=== PATIENT | male | born 1950 | race Caucasian/White ===

== ENCOUNTER 2017-05-08 13:12 | Outpatient (CLI) | payer MEDICARE ==
--- NOTE | 2017-05-08 17:35 | MRI ---
MRI RIGHT LOWER EXTREMITY: Date: 05/08/17 HISTORY: Pain FINDINGS: Medial Meniscus: Chronic full thickness radial tear of the posterior root attachment medial meniscus with medial gutt er extrusion of the severely degenerative medial meniscus, 3-4 mm. There is extensive loss of volume of the medial meniscal body and posterior horn. Lateral Meniscus: Mild degenerative. No displaced tear. 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 Posterior cruciate ligament is int act. There is moderate edema on both sides of the medial collateral ligament, which is otherwise intact. Lateral collateral ligaments intact. Extensor Mechanism: Quadriceps tendon, patella, and patellar tendon are intact. Soft Tissues: Moderate joint effusion. There is a leaking popliteal cyst with debris extending between the soleus and medial head of gastrocnemius muscles, as well as between the popliteus and medial head gastrocne mius. Cartilage: Patellofemoral cartilage: Multifocal full thickness cartilage defects of the medial and lateral pat ellar facets with large osteophyte formation. Medial compartment: Near full thickness cartilage loss of the labrum at medial femoral condyle and medial tibial plateau. Lateral compartment: Moderate cartilage fraying. No full thickness defect. IMPRESSION: 1. Full thickness radial tear of the posterior root attachment medial meniscus with extensive degen eration of the body and posterior horn, as well as medial gutter extrusion. 2. 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 3. Leaking popliteal cyst with debris leaking outside of the cyst wheat and into the soft tissues b etween the popliteus and medial head gastrocnemius. 4. Dilated greater saphenous vein suggests reflux disease. 5. Multifocal near full thickness cartilage loss of the medial compartment with large osteophyte fo rmation. POS: [facility]
== END 2017-05-08 13:13 | disposition home or self-care (01) ==
LOC: SCSMRI 13:12
PROVIDERS: ATTEND Orthopaedic Surgery
DX: M25.561 Pain in right knee (principal); S83.241A Other tear of medial meniscus, current injury, right knee, initial encounter; M71.21 Synovial cyst of popliteal space [Baker], right knee; M23.91 Unspecified internal derangement of right knee

== ENCOUNTER 2017-10-28 12:11 | Outpatient (CLI) | payer MEDICARE ==
[2017-10-28 14:04] LABS: #Eosinphils 0.1 thou/uL (0.0-0.7); #Lymphocytes 1.8 thou/uL (1.20-3.40); #Monocytes 0.5 thou/uL (0.11-0.59); #Neutrophils 4.1 thou/uL (1.40-6.50); %Basophils 0.7 % (0.0-1.0); %Lymphocytes 27.5 % (21.0-51.0); %Monocytes 7.9 % (0.0-10.0); %Neutrophils 61.9 % (42.0-75.0); Hemoglobin 15.3 g/dL (14.0-18.0); Mean Corpuscular HGB CONC 33.4 g/dL (32.0-36.0); Mean Corpuscular Hemoglobin 31.2 pg (27.0-31.0); Mean Corpuscular Volume 93.7 fl (80.0-94.0); Mean Platelet Volume 8.1 fL (7.4-10.4); Platelet Count 195 thou/uL (130-400); RBC Distribution Width 11.5 % (11.5-14.5); Red Blood Cell (RBC) Count 4.91 mill/uL (4.70-6.10); White Blood Cell (WBC) Count 6.7 thou/uL (4.8-10.8)
[2017-10-28 14:08] LABS: INR-International Normal Ratio 0.9; Prothrombin Time 12.6 SEC (12.0-14.7)
[2017-10-28 14:09] LABS: Bilirubin Negative (Negative); Blood, Urine Negative (Negative); Clarity CLEAR (Clear); Glucose, Urine (Dipstick) Negative (Negative); Leukocyte Negative (Negative); Nitrite Negative (Negative); Protein, Urine (Dipstick) Negative (Neg-Trace); Urobilinogen 0.2 mg/dL (0.2-1.0); pH, Urine 6.5 (5.0-9.0)
[2017-10-28 14:22] LABS: Bacteria/HPF None Seen HPF (None Seen); Hyaline Casts/LPF 0-3 HYALINE CAST LPF (0-3 Hyaline); RBC/HPF 0-3 HPF (0-3); Squamous Epithelial None Seen HPF (0-3); WBC/HPF None Seen HPF (0-3)
[2017-10-28 14:28] LABS: Anion Gap 16 mmol/L (10-20); BUN (Urea Nitrogen) 24 mg/dL (8.4-25.7); Calc. Creatinine Clearance 0 mL/min (70-130); Calcium 9.6 mg/dL (7.8-10.44); Carbon Dioxide 22 mmol/L (23-31); Chloride 102 mmol/L (98-107); Estimated GFR-MDRD Greater than 90; Glucose 91 mg/dL (80-115); Potassium 4.5 mmol/L (3.5-5.1); Sodium 135 mmol/L (136-145)
--- NOTE | 2017-10-28 14:31 | RAD ---
CHEST 2 VIEWS: HISTORY: Preop. COMPARISON: Chest radiograph 2017. FINDINGS: Lungs without focal airspace consolidation, pneumothorax, or effusion. Cardiac silhouette and medias tinal contours within normal limits. Anterior flowing osteophytes throughout the thoracic spine. IMPRESSION: No acute intrathoracic abnormality. POS: [facility]
--- NOTE | 2017-10-28 16:04 | EKG ---
Test Reason : Blood Pressure : / mmHG Vent. Rate : 052 BPM Atrial Rate : 052 BPM P-R Int : 182 ms QRS Dur : 142 ms QT Int : 454 ms P-R-T Axes : 050 -01 027 degrees QTc Int : 422 ms Sinus bradycardia Right bundle branch block Abnormal ECG Confirmed by NOLAN AYALA ([id number]) on 10/28/2017 4:04:06 PM Referred By: CHELE Confirmed By:NOLAN AYALA
== END 2017-10-28 12:12 | disposition home or self-care (01) ==
LOC: LABBT 12:11
PROVIDERS: ATTEND Orthopaedic Surgery
DX: Z01.818 Encounter for other preprocedural examination (principal); M17.11 Unilateral primary osteoarthritis, right knee; R00.1 Bradycardia, unspecified; I45.10 Unspecified right bundle-branch block
CPT/HCPCS: 71046; 80048; 81001; 85025; 85610; 86850; 86900; 86901; 87081; 93005; 93010

== ENCOUNTER 2017-11-04 05:32 | Day surgery (SDC) | payer MEDICARE ==
[2017-10-28 12:30] VITALS: BMI 40.7
[2017-11-04] MEDS ORDERED: CEFAZOLIN/Water 2 GM/20 ML SYRINGE ONE (05:56)
[2017-11-04] MEDS ORDERED: Vancomycin HCl 1.5 GM in Sodium Chloride 0.9% 250 ML 300 ML IVPB SCH (06:15)
[2017-11-04] MEDS ORDERED: Fentanyl 100 MCG/2 ML VIAL ONE ×3 (06:26→09:10)
[2017-11-04] MEDS ORDERED: Lidocaine 1% (PF) 30 ML VIAL ONE (06:26)
[2017-11-04] MEDS ORDERED: Midazolam HCl 2 mg/2 ml Vial ONE (06:26)
[2017-11-04] MEDS ORDERED: HYDROcodone/Acetaminophen 10/325 mg Tablet PO PRN (07:10)
[2017-11-04] MEDS ORDERED: Promethazine HCl 25 MG/ML VIAL IM PRN ×3 (07:10→08:51)
[2017-11-04] MEDS ORDERED: traMADol HCl 50 MG TAB PO PRN ×2 (07:10→08:48)
[2017-11-04] MEDS ORDERED: Ondansetron HCl/PF 4 MG/2 ML Vial IVP PRN ×3 (07:10→08:51)
[2017-11-04] MEDS ORDERED: Morphine 10 MG/ML VIAL ONE (07:45)
[2017-11-04] MEDS ORDERED: Zolpidem Tartrate 5 MG TAB PO PRN (08:48)
[2017-11-04] MEDS ORDERED: Fentanyl 100 MCG/2 ML VIAL SLOW IVP PRN (08:48)
[2017-11-04] MEDS ORDERED: diphenhydrAMINE 25 MG CAP PO PRN (08:48)
[2017-11-04] MEDS ORDERED: Acetaminophen 325 MG TAB PO PRN (08:48)
[2017-11-04] MEDS ORDERED: Promethazine HCl 25 MG/ML VIAL SLOW IVP PRN (08:51)
[2017-11-04] MEDS ORDERED: Tranexamic Acid 1,000 MG in Sodium Chloride 0.9% 100 ML IVPB SCH (09:00)
[2017-11-04] MEDS ORDERED: Non-Formulary Item 1 EACH (Telmisartan/Hydrochlorothiazid [Telmisartan-Hctz 80-12.5 Mg Tb PO SCH (09:00)
[2017-11-04] MEDS ORDERED: Promethazine HCl 25 MG/ML VIAL ONE (09:10)
[2017-11-04] MEDS: HYDROcodone/Acetaminophen 10/325 mg Tablet PO PRN ×3 (10:05→22:10)
[2017-11-04] MEDS: Aspirin 81 mg Enteric Coated Tablet PO SCH ×2 (10:06→21:31)
[2017-11-04] MEDS: Multivitamin W/ Minerals 1 TAB PO SCH (10:06)
[2017-11-04] MEDS ORDERED: hydrALAZINE 20 MG/ML VIAL SLOW IVP PRN (10:07)
[2017-11-04] MEDS: Amlodipine 5 MG TAB PO SCH (10:07)
--- NOTE | 2017-11-04 10:28 | OP ---
PREOPERATIVE DIAGNOSIS: Degenerative joint disease of the right knee. POSTOPERATIVE DIAGNOSIS: Degenerative joint disease of the right knee. SURGEON: Temo Gunderson M.D. ORAL SURGERY TECHNICIAN: Yolei Cassidy PA-C BLOOD LOSS: Minimal. SPECIMEN: None. DRAINS: None. COMPLICATIONS: None. TITLE OF PROCEDURE: Right total knee arthroplasty. IMPLANTS USED: Lottie 5 femur, 5 tibia, 9 mm CSX3 polyethylene, and A35 patella, this was the Triat hlon System. PROCEDURE IN DETAIL: After informed consent was obtained in the preoperative holding area. The darlin ent was taken to the operative suite where general anesthesia was induced. Once adequate level of ge neral anesthesia was obtained, the patient was positioned and a well-padded tourniquet was placed mahendra und the right proximal thigh. The right lower extremity was then prepped and draped in the usual denice rile fashion. Prior to exsanguination, a time out was called and all members of the surgical team ag miranda upon site, surgeon, and patient. The extremity was then exsanguinated and the tourniquet was ra ised. A midline longitudinal incision was then made directly over the patella extending two fingerbr eadths above the superior pole of the patella and two fingerbreadths inferior to the inferior patella r pole of the patella. Deeper subcutaneous layers were dissected sharply and local bleeding was cont rolled with Bovie electrocautery. A quad tendon longitudinal split was then made sharply and a media n parapatellar arthrotomy was carried out both sharp and with Bovie electrocautery, carried down to o ne fingerbreadth medial to the tibial tubercle. The knee was then placed into flexion and the patell a was everted nicely, and a copious fat pad ectomy was performed allowing for greater exposure of the tibia. The computer-assisted distal femoral fiducial was then placed and pinned firmly, and the dis hosea femoral cutting guide was pinned firmly into place. The oscillating saw was then used to remove the appropriate amount of bone. The 4-in-1 cutting block was then placed on the distal femur and the oscillating saw was used to remove the appropriate amount of bone off of the anterior, posterior, an d chamfer cuts. After completion of bone cuts, the anterior cruciate ligament was resected sharply a nd the posterior cruciate ligament retractor was placed and the tibia was subluxed for better exposur e. Partial meniscectomies were carried out, and the tibial computer-assisted fiducial was pinned, an d the cutting guide was placed. Oscillating saw was then used to remove the bone with Hohmann retrac tors used to take care and protect the collateral ligaments. After the tibial resection was performe d, a laminar hat steamer was placed in between the freshened bone cuts. The knee placed at 90 degrees a nd further bilateral meniscectomies were carried out, and the curved osteotome and curettage was used to remove any excess bone spurs in the posterior compartment. The trial femoral component, tibial b aseplate were placed with the appropriate polyethylene trial insert with an appropriate polyethylene spacer and patellar button. The knee was taken through full range of motion with flexion and extensi on from 0-90 degrees and patellar broach squarely in the trochlea without any squinting or subluxatio n noted. The knee was also stable to varus and valgus stressing at 0, 15, 45, and 90 degrees of flex ion. The drawer was negative. All trial components were then removed and the keel punch was used to provide the appropriate defect in the tibia with a mallet. The freshened bone cuts were copiously ir rigated with pulsatile lavage of about 1-1/2 liters to remove all excess debris. The freshened bone cuts were then dried and with suction and lap sponge. The knee was placed in flexion and retractors were placed to provide access to all bone cuts. Tobramycin impregnated methyl methacrylate cement wa s then placed on the freshened bone cuts and implants which were malleted firmly into place. Curetta ge and Carlton elevators were used to remove any excess bone cement. The knee was placed into full ext ension and the patellar button was placed under compression, and the cement was allowed to cure. Onc e completed, the components were again taken through full range of motion and copious irrigation of t he knee was carried out with another liter of normal saline. All components were inspected fully wit h full range of motion and varus and valgus stressing. There was no laxity noted and full extension w as observed clinically. Primary closure was accomplished with #2 interrupted Vicryl stitch of the ar throtomy defect. This was oversewn with a #2 running Quill barbed stitch. The gravitational platele t system was then injected into the arthrotomy prior to closure. The subcutaneous layer was then yadira sed with a running 0 barbed Monocryl stitch and skin closure accomplished with a running subcuticular 3-0 Monocryl barbed Quill stitch and augmented with cement on the skin. Tourniquet was lowered. Go od spontaneous return of distal pulses was noted clinically and a sterile dressing was applied to the incision. The procedure was terminated without any complications. The patient was awakened in the operative suite and the tourniquet was removed, and the patient was taken to the recovery room in sta ble condition.
--- NOTE | 2017-11-04 10:50 | RAD ---
RIGHT KNEE TWO VIEWS: History: 67-year-old male with history of recent total knee arthroplasty. FINDINGS: Right total knee recent arthroplasty changes are noted without evidence for dislocation or periprosth etic fracture or other significant acute process. IMPRESSION: Unremarkable left total knee arthroplasty changes. POS: [facility]
[2017-11-04] MEDS ORDERED: Ketorolac Tromethamine 30 MG/ML VIAL IVP SCH (12:00)
[2017-11-04] MEDS: Sodium Chloride 0.9% 1,000 ML IV SCH ×2 (13:16→19:16)
[2017-11-04] MEDS: Fentanyl 100 MCG/2 ML VIAL IV PRN (13:18)
[2017-11-04] MEDS ORDERED: CEFAZOLIN/Water 2 GM/20 ML SYRINGE SLOW IVP SCH (14:00)
[2017-11-04] MEDS: CEFAZOLIN/Water 2 GM/20 ML SYRINGE SLOW IVP SCH ×2 (14:32→22:03)
[2017-11-04] MEDS: Ketorolac Tromethamine 30 MG/ML VIAL IVP SCH ×2 (15:53→21:31)
[2017-11-04] MEDS ORDERED: Bupivacaine 0.25% HCL 30 ML VIAL ONE (15:59)
[2017-11-04] MEDS ORDERED: Ropivacaine 0.5% HCl/PF (150 MG/30 ML VIAL) ONE (15:59)
[2017-11-04] MEDS ORDERED: PROPOFOL 200 MG/20 ML VIAL ONE (16:25)
[2017-11-04] MEDS ORDERED: Ketorolac Tromethamine 30 MG/ML VIAL ONE (16:25)
[2017-11-04] MEDS ORDERED: Lidocaine 1% PF 5 ML VIAL ONE (16:25)
[2017-11-04] MEDS: traMADol HCl 50 MG TAB PO PRN (19:15)
[2017-11-04] MEDS ORDERED: Non-Formulary Item 1 EACH (Zolpidem Tartrate [Zolpidem Tartrate] 10 MG) PO SCH (21:00)
[2017-11-04] MEDS: Zolpidem Tartrate 5 MG TAB PO PRN (21:31)
[2017-11-04] MEDS: Bupivacaine 0.5% 50 ML in Sodium Chloride 0.9% 50 ML NERVE BLCK SCH (22:03)
--- NOTE | 2017-11-04 22:21 | PDOC.PN ---
- Subjective Encounter Start Date: 11/04/17 Encounter Start Time: 15:00 Patient seen and examined for med mngt. No new complaints except discomfort over the surgical site. - Objective MAR Reviewed: Yes Vital Signs & Weight: Vital Signs (12 hours) Temp Pulse Pulse Resp BP Pulse Ox Pulse Ox 11/04/17 13:39 63 143/77 H 98 11/04/17 12:00 97.7 F 65 18 97 Weight Weight 260 lb I&O: 11/03/17 11/04/17 11/05/17 06:59 06:59 06:59 Intake Total 1670.5 Output Total 250 Balance 1420.5 Result Diagrams: 11/05/17 03:37 EKG Reviewed by me: Yes (SB, RBSHARIF) Phys Exam - Physical Examination Constitutional: NAD Respiratory: no wheezing, no rhonchi Cardiovascular: RRR, no rub Gastrointestinal: soft, non-tender, positive bowel sounds Musculoskeletal: no edema Neurological: moves all 4 limbs Dx/Plan - Plan DVT proph w/SCDs IMPRESSION: 1. HTN 2. GERD 3. ?CONNIE 4. Morbid obesity BMI 40.7 5. RBBB/ Seasonal allergies/ DJD PLAN: * Cont Amlodipine with HCTZ * Add Miralax PRN * Sleep study as outpt * Full code. DPOA - self/spouse * Will follow. Thank you for this consultation. Review of Systems - Review of Systems Respiratory: negative: Cough, Dry, Shortness of Breath, Hemoptysis, SOB with Excertion, Pleuritic Pain, Sputum, Wheezing Cardiovascular: negative: chest pain, palpitations, orthopnea, paroxysmal nocturnal dyspnea, edema, light headedness, other Gastrointestinal: negative: Nausea, Vomiting, Abdominal Pain, Diarrhea, Constipation, Melena, Hematochezia, Other - Medications/Allergies Allergies/Adverse Reactions: Allergies Allergy/AdvReac Type Severity Reaction Status Date / Time No Known Allergies Allergy Unverified 02/10/17 09:41 Medications: Current Medications Acetaminophen (Tylenol) 650 mg PO Q4H PRN PRN Reason: GARCÍA/ T > 101F; Mild Pain (1-3) Hydrocodone Bitart/Acetaminophen ([place] 10/325) 1 tab PO Q4H PRN PRN Reason: Pain (1-3) Hydrocodone Bitart/Acetaminophen ([place] 10/325) 2 tab PO Q4H PRN PRN Reason: PAIN (4-6) Last Admin: 11/04/17 22:10 Dose: 2 tab Amlodipine Besylate (Norvasc) 2.5 mg PO DAILY [facility] Last Admin: 11/04/17 10:07 Dose: Not Given Aspirin (Ecotrin) 81 mg PO BID [facility] Last Admin: 11/04/17 21:31 Dose: 81 mg Cefazolin Sodium (Ancef) 2 gm SLOW IVP 0700,1500,2300 [facility] Stop: 11/04/17 23:01 Last Admin: 11/04/17 22:03 Dose: 2 gm Diphenhydramine HCl (Benadryl) 25 mg PO Q6H PRN PRN Reason: Itching Fentanyl (Sublimaze) 50 mcg IV Q1H PRN PRN Reason: BREAKTHRU PAIN Last Admin: 11/04/17 13:18 Dose: 50 mcg Ferrous Gluconate (Fergon) 324 mg PO BID [facility] Hydralazine HCl (Apresoline) 10 mg SLOW IVP Q4H PRN PRN Reason: SBP Greater Than 180 Hydrochlorothiazide (Hydrochlorothiazide) 12.5 mg PO DAILY [facility] Bupivacaine HCl 50 ml/ Sodium (Chloride) 100 mls @ 8 mls/hr NERVE BLCK INF [facility] Last Admin: 11/04/17 22:03 Dose: 100 mls Sodium Chloride (Normal Saline 0.9%) 1,000 mls @ 100 mls/hr IV .Q10H [facility] Last Admin: 11/04/17 19:16 Dose: 1,000 mls Iron/Minerals/Multivitamins (Theragran M) 1 tab PO DAILY [facility] Last Admin: 11/04/17 10:06 Dose: Not Given Ketorolac Tromethamine (Toradol) 15 mg IVP Q6H [facility] Stop: 11/06/17 10:01 Last Admin: 11/04/17 21:31 Dose: 15 mg Ondansetron HCl (Zofran) 4 mg IVP Q6H PRN PRN Reason: Nausea/Vomiting Ondansetron HCl (Zofran) 4 mg IVP Q6H PRN PRN Reason: Nausea/Vomiting Pantoprazole Sodium (Protonix) 40 mg PO DAILY [facility] Last Admin: 11/04/17 10:06 Dose: 40 mg Promethazine HCl (Phenergan) 12.5 mg IM Q4H PRN PRN Reason: Nausea Promethazine HCl (Phenergan) 12.5 mg IM Q4H PRN PRN Reason: Nausea/Vomiting Senna/Docusate Sodium (Senokot S) 2 tab PO BID [facility] Sodium Chloride (Flush - Normal Saline) 10 ml IVF PRN PRN PRN Reason: Saline Flush Telmisartan (Micardis) 80 mg PO DAILY [facility] Tramadol HCl (Ultram) 50 mg PO Q6H PRN PRN Reason: Mild Pain (1-3) Tramadol HCl (Ultram) 100 mg PO Q6H PRN PRN Reason: Moderate Pain 4-6 Last Admin: 11/04/17 19:15 Dose: 100 mg Zolpidem Tartrate (Ambien) 5 mg PO HSPRN PRN PRN Reason: Insomnia Last Admin: 11/04/17 21:31 Dose: 5 mg
[2017-11-05] MEDS: Ketorolac Tromethamine 30 MG/ML VIAL IVP SCH ×4 (03:25→21:37)
[2017-11-05 04:32] LABS: Hemoglobin 12.4 g/dL (14.0-18.0); Mean Corpuscular HGB CONC 33.6 g/dL (32.0-36.0); Mean Corpuscular Hemoglobin 32.1 pg (27.0-31.0); Mean Corpuscular Volume 95.4 fl (80.0-94.0); Mean Platelet Volume 8.3 fL (7.4-10.4); Platelet Count 165 thou/uL (130-400); RBC Distribution Width 11.4 % (11.5-14.5); Red Blood Cell (RBC) Count 3.87 mill/uL (4.70-6.10); White Blood Cell (WBC) Count 8.6 thou/uL (4.8-10.8)
[2017-11-05] MEDS: Sodium Chloride 0.9% 1,000 ML IV SCH ×2 (04:55→16:05)
[2017-11-05] MEDS: traMADol HCl 50 MG TAB PO PRN ×2 (06:19→13:51)
[2017-11-05] MEDS: HYDROcodone/Acetaminophen 10/325 mg Tablet PO PRN ×4 (07:00→20:09)
[2017-11-05] MEDS: Fentanyl 100 MCG/2 ML VIAL IV PRN (07:43)
[2017-11-05] MEDS ORDERED: Polyethylene Glycol 3350 17 GM Packet PO PRN (08:33)
[2017-11-05] MEDS: Senokot S 8.6-50 MG TAB PO SCH ×2 (09:32→20:09)
[2017-11-05] MEDS: Hydrochlorothiazide 25 MG TAB PO SCH (09:33)
[2017-11-05] MEDS: Ferrous Gluconate 324 MG TAB PO SCH ×2 (09:35→20:08)
[2017-11-05] MEDS: Amlodipine 5 MG TAB PO SCH (09:35)
[2017-11-05] MEDS: Aspirin 81 mg Enteric Coated Tablet PO SCH ×2 (09:37→20:09)
[2017-11-05] MEDS: Multivitamin W/ Minerals 1 TAB PO SCH (09:37)
[2017-11-05] MEDS: Bupivacaine 0.5% 50 ML in Sodium Chloride 0.9% 50 ML NERVE BLCK SCH (13:41)
[2017-11-05] MEDS: Zolpidem Tartrate 5 MG TAB PO PRN (20:09)
[2017-11-06] MEDS: Sodium Chloride 0.9% 1,000 ML IV SCH (00:38)
[2017-11-06] MEDS: Bupivacaine 0.5% 50 ML in Sodium Chloride 0.9% 50 ML NERVE BLCK SCH (02:21)
[2017-11-06] MEDS: HYDROcodone/Acetaminophen 10/325 mg Tablet PO PRN ×2 (02:30→08:51)
[2017-11-06] MEDS: Ketorolac Tromethamine 30 MG/ML VIAL IVP SCH ×2 (04:36→10:11)
[2017-11-06 05:27] LABS: Mean Corpuscular Hemoglobin 31.7 pg (27.0-31.0); Mean Corpuscular Volume 93.1 fl (80.0-94.0); Mean Platelet Volume 7.8 fL (7.4-10.4); Platelet Count 161 thou/uL (130-400); RBC Distribution Width 11.3 % (11.5-14.5); White Blood Cell (WBC) Count 7.7 thou/uL (4.8-10.8)
[2017-11-06 08:29] VITALS: BP 171/90; TEMP 98.5
[2017-11-06] MEDS: Ferrous Gluconate 324 MG TAB PO SCH (08:52)
[2017-11-06] MEDS: Senokot S 8.6-50 MG TAB PO SCH (08:52)
[2017-11-06] MEDS: Multivitamin W/ Minerals 1 TAB PO SCH (08:52)
[2017-11-06] MEDS: Aspirin 81 mg Enteric Coated Tablet PO SCH (08:52)
[2017-11-06] MEDS: Amlodipine 5 MG TAB PO SCH (08:52)
[2017-11-06] MEDS: Hydrochlorothiazide 25 MG TAB PO SCH (08:53)
== END 2017-11-06 11:40 | disposition home or self-care (01) ==
LOC: SDC 05:32 → SJJU 08:48 → SDC 11-06 11:40
PROVIDERS: ATTEND Orthopaedic Surgery
PROC: 0SRC069 Replacement of Right Knee Joint with Oxidized Zirconium on Polyethylene Synthetic Substitute, Cemented, Open Approach (ICD-10-PCS; principal; 2017-11-04)
DX: M17.11 Unilateral primary osteoarthritis, right knee (principal); I10 Essential (primary) hypertension; K21.9 Gastro-esophageal reflux disease without esophagitis; E66.01 Morbid (severe) obesity due to excess calories; I45.10 Unspecified right bundle-branch block; J30.2 Other seasonal allergic rhinitis; Z68.41 Body mass index [BMI] 40.0-44.9, adult; Z79.1 Long term (current) use of non-steroidal anti-inflammatories (NSAID); Z79.899 Other long term (current) drug therapy
CPT/HCPCS: 27447; 73560; 85027; 97110; 97116 ×3; 97139 ×3; 97150; 97530 ×2; C1713; C1776; G8978; G8979; 36415; J1885; J2001; J2250; J2270; J2550; J2704; J2795; J3010; J3370; J3490; J7050; S0020